=== PATIENT | male | born 1985 ===

== ENCOUNTER 2021-10-21 13:52 | Inpatient (IN) | payer SELFPAY ==
[2021-10-21 13:54] VITALS: BMI 25.1
[2021-10-21 14:00] VITALS: BP 152/76; PULSE 64; RESP 16; TEMP 36.4; O2SAT 96
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
[2021-10-21] MEDS: nicotine 4 mg lozenge MUCOUS MEM (17:27)
[2021-10-21 19:55] VITALS: BP 130/81; PULSE 68; RESP 18; TEMP 36.6; O2SAT 98
[2021-10-21] MEDS: acetaminophen 325 mg Tablet 650 MG PO (20:33)
[2021-10-21] MEDS: trazodone 50 mg Tablet 100 MG PO (20:33)
[2021-10-22 06:00] VITALS: BP 129/91; PULSE 92; RESP 18; TEMP 36.6; O2SAT 98
[2021-10-22] MEDS: thiamine 100 mg Tablet PO (08:57)
[2021-10-22] MEDS: multivitamin therapeutic Tablet 1 TAB PO (08:57)
[2021-10-22] MEDS: citalopram 20 mg Tablet PO (08:57)
[2021-10-22] MEDS: folic acid 1 mg Tablet PO (08:57)
[2021-10-22] MEDS: nicotine 21 mg Patch 1 PATCH TRANSDERMA (09:57)
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
[2021-10-22 14:00] VITALS: BP 118/68; PULSE 76; RESP 12; TEMP 37; O2SAT 99
[2021-10-22 20:10] VITALS: BP 143/72; PULSE 66; RESP 15; O2SAT 100
[2021-10-22] MEDS: trazodone 50 mg Tablet 100 MG PO (20:22)
[2021-10-23 05:42] VITALS: BP 121/72; PULSE 63; RESP 17; TEMP 36.6; O2SAT 98
[2021-10-23] MEDS: nicotine 21 mg Patch 1 PATCH TRANSDERMA (08:03)
[2021-10-23] MEDS: citalopram 20 mg Tablet 30 MG PO (08:04)
[2021-10-23 13:48] VITALS: BP 121/72; PULSE 63; RESP 17; TEMP 36.6; O2SAT 98
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
[2021-10-23 14:25] VITALS: BP 121/72; PULSE 63; RESP 17; TEMP 36.6; O2SAT 98
== END 2021-10-23 15:57 | disposition home or self-care (01) | DRG 881 ==
PROVIDERS: Admitting Provider Psychiatry & Neurology Psychiatry; Visit Provider Psychiatry & Neurology Psychiatry
DX: F32.A Depression, unspecified (principal); R45.851 Suicidal ideations; F41.9 Anxiety disorder, unspecified; F10.10 Alcohol abuse, uncomplicated; Z62.810 Personal history of physical and sexual abuse in childhood; Z81.4 Family history of other substance abuse and dependence
CPT/HCPCS: 97150; 97165